=== PATIENT | male | born 1955 | race Caucasian/White ===

== ENCOUNTER 2024-04-25 19:13 | Inpatient (IN) | payer BC ==
[~2024-04-25] VITALS: Ht 182.9 cm; Wt 122.5 kg
[2024-04-25] MEDS: IV NS 0.9% 1,000 ML BAG IV ONE ×2 (19:58→21:13)
[2024-04-25 20:07] LABS: BASOPHILS % (AUTO) 0.5 % (0.0-2.0); EOSINOPHILS # (AUTO) 0.2 K/uL (0.0-0.7); EOSINOPHILS % (AUTO) 2.5 % (0.0-6.0); HEMATOCRIT 40 % (39-51); HEMOGLOBIN 12.9 g/dL (13.5-17.5); LYMPHOCYTES # (AUTO) 1.9 K/uL (0.8-4.8); LYMPHOCYTES % (AUTO) 27.5 % (20.0-44.0); MEAN CORPUSCULAR HEMOGLOBIN 26 PG (26.0-33.0); MEAN CORPUSCULAR HGB CONC 32 g/dl (31.0-36.0); MEAN CORPUSCULAR VOLUME 82 fL (80-96); NEUTROPHILS # (AUTO) 3.8 K/uL (1.8-8.9); NEUTROPHILS % (AUTO) 55.5 % (43.0-81.0); PLATELET COUNT (AUTO) 283 K/uL (150-450); RED BLOOD CELL COUNT(AUTO) 4.94 MIL/uL (4.5-6.0); RED CELL DISTRIBUTION WIDTH 14.6 % (11.5-15.0); WHITE BLOOD COUNT (AUTO) 6.8 K/uL (4.3-11.0)
[2024-04-25 20:29] LABS: CALCIUM, SERUM 9.2 mg/dL (8.5-10.1); CARBON DIOXIDE 25 mmol/L (21-32); CHLORIDE 104 mmol/L (98-107); CREATININE 2.8 mg/dL (0.6-1.3); POTASSIUM 3.9 mmol/L (3.5-5.1); SODIUM SERUM 138 mmol/L (136-145); UREA NITROGEN, BLOOD 23 mg/dL (7-18)
[2024-04-25 20:37] LABS: ALANINE AMINOTRANSFERASE 38 U/L (12-78); ALBUMIN 3.5 g/dL (3.4-5.0); ALKALINE PHOSPHATASE 111 U/L (46-116); ASPARTATE AMINOTRANSFERASE 16 U/L (15-37); BILIRUBIN,DIRECT 0.1 mg/dL (0.0-0.2); BILIRUBIN,TOTAL 0.3 mg/dL (0.2-1.0); GLUCOSE 401 mg/dL (74-106); LIPASE 79 U/L (16-77); TOTAL PROTEIN, SERUM 7.7 g/dL (6.4-8.2)
[2024-04-25] MEDS ORDERED: INSULIN REGULAR, HUMAN 100 UNIT/ML 10 ML VIAL ONE (21:08)
[2024-04-25] MEDS ORDERED: CEFTRIAXONE 1GM BAG (ER ONLY) 50 ML IV ONE (21:08)
[2024-04-25] MEDS ORDERED: AZITHROMYCIN 500 MG VIAL ONE (21:08)
[2024-04-25] MEDS: CEFTRIAXONE 1GM BAG (ER ONLY) 50 ML IV ONE (21:13)
[2024-04-25] MEDS: AZITHROMYCIN 500 MG in IV D5W 250 ML IV ONE (21:36)
[2024-04-25] MEDS: INSULIN REGULAR, HUMAN 100 UNIT/ML 10 ML VIAL SQ ONE (21:37)
[2024-04-25] MEDS ORDERED: ACETAMINOPHEN 325 MG TABLET PO PRN (22:30)
[2024-04-25] MEDS ORDERED: DEXTROSE 50%-WATER 50 ML DISP.SYRIN IV PRN (22:30)
[2024-04-25] MEDS ORDERED: MAG HYDROX/AL HYDROX/SIMETH 30 ML UDC PO PRN (22:30)
[2024-04-25] MEDS ORDERED: Z GUARD REMEDY 4 OZ OINT TP PRN (22:30)
[2024-04-25] MEDS ORDERED: MAGNESIUM HYDROXIDE 30 ML UDC PO PRN (22:30)
[2024-04-25] MEDS ORDERED: ONDANSETRON HCL/PF 4 MG/2 ML VIAL IVP PRN (22:30)
[2024-04-25] MEDS ORDERED: ZOLPIDEM TARTRATE 5 MG TABLET PO PRN (22:30)
[2024-04-25] MEDS ORDERED: *INSULIN REGULAR(HUMULIN R)HUM 100 UNIT/ML VIAL SQ PRN (22:30)
[2024-04-25] MEDS: IV 1/2NS 1000 ML 1,000 ML IV PRN (23:11)
[2024-04-26] VITALS: BP 160/93; TEMP 97.5; O2SAT 99
[2024-04-26 04:00] VITALS: BP 158/92; TEMP 98.2; O2SAT 98
[2024-04-26] MEDS: INSULIN REGULAR, HUMAN 100 UNIT/ML 3 ML VIAL SQ PRN ×2 (06:45→09:12)
[2024-04-26] MEDS: BLOOD SUGAR DIAGNOSTIC 1 EACH STRIP VI SCH ×2 (06:45→09:11)
[2024-04-26] MEDS: PANTOPRAZOLE 40 MG TABLET.DR PO SCH (07:43)
[2024-04-26 08:00] VITALS: BP 151/91; TEMP 98.2; O2SAT 98
[2024-04-26 08:04] LABS: CALCIUM, SERUM 8.6 mg/dL (8.5-10.1); MAGNESIUM 1.9 mg/dL (1.8-2.4); PHOSPHORUS 2.9 mg/dL (2.5-4.9); POTASSIUM 3.5 mmol/L (3.5-5.1)
[2024-04-26 08:09] LABS: BASOPHILS % (AUTO) 0.3 % (0.0-2.0); EOSINOPHILS # (AUTO) 0.2 K/uL (0.0-0.7); HEMATOCRIT 38 % (39-51); HEMOGLOBIN 12.1 g/dL (13.5-17.5); LYMPHOCYTES # (AUTO) 2.3 K/uL (0.8-4.8); LYMPHOCYTES % (AUTO) 30.1 % (20.0-44.0); MEAN CORPUSCULAR HEMOGLOBIN 26 PG (26.0-33.0); MEAN CORPUSCULAR HGB CONC 32 g/dl (31.0-36.0); MEAN CORPUSCULAR VOLUME 81 fL (80-96); MONOCYTES # (AUTO) 1.4 K/uL (0.1-1.30); NEUTROPHILS # (AUTO) 3.8 K/uL (1.8-8.9); NEUTROPHILS % (AUTO) 48.6 % (43.0-81.0); PLATELET COUNT (AUTO) 295 K/uL (150-450); RED BLOOD CELL COUNT(AUTO) 4.68 MIL/uL (4.5-6.0); RED CELL DISTRIBUTION WIDTH 14.1 % (11.5-15.0); WHITE BLOOD COUNT (AUTO) 7.7 K/uL (4.3-11.0)
[2024-04-26] MEDS ORDERED: DEXTROSE 50%-WATER 50 ML DISP.SYRIN IV PRN (09:00)
[2024-04-26] MEDS ORDERED: HEPARIN SODIUM, PORCINE 5000 UNITS/1 ML VIAL SQ SCH (09:00)
[2024-04-26] MEDS: AMLODIPINE BESYLATE 5 MG TABLET PO SCH (09:06)
[2024-04-26] MEDS ORDERED: VALS40TA12 PO (10:54)
[2024-04-26] MEDS ORDERED: PREG-57 PO (10:54)
[2024-04-26] MEDS ORDERED: ATOR40TA PO (10:54)
[2024-04-26] MEDS ORDERED: TOPI25TA49 PO (10:54)
[2024-04-26] MEDS ORDERED: INSU100I4 SQ (10:54)
[2024-04-26] MEDS ORDERED: INSU100V7 SQ (10:54)
[2024-04-26] MEDS ORDERED: AMIT100T2 PO (10:54)
[2024-04-26] MEDS ORDERED: APIX5TAB PO (10:54)
[2024-04-26] MEDS ORDERED: TORS20TA3 PO (10:54)
[2024-04-26] MEDS ORDERED: TAMS-12 PO (10:54)
[2024-04-26] MEDS ORDERED: AMLO-213 PO (10:54)
[2024-04-26] MEDS ORDERED: PANT20TA17 PO (10:54)
[2024-04-26 12:00] VITALS: BP 153/82; TEMP 98.2; O2SAT 98
[2024-04-26 13:11] LABS: EOSINOPHILS % (MANUAL) 2 % (0-4); LYMPHOCYTES % (MANUAL) 32 % (16-48); MONOCYTES % (MANUAL) 14 % (0-11.0); NEUTROPHILS % (MANUAL) 52 (42-76); PLATELET ESTIMATE ADEQUATE
[2024-04-26 16:00] VITALS: BP 154/87; TEMP 98.4; O2SAT 96
[2024-04-26 20:00] VITALS: BP 152/81; TEMP 98.2; O2SAT 98
[2024-04-26] MEDS: CEFTRIAXONE 1 G in IV D5W 50 ML IV SCH (20:50)
[2024-04-26] MEDS: AZITHROMYCIN 500 MG in IV D5W 250 ML IV SCH (22:14)
[2024-04-26] MEDS: *INSULIN REGULAR(HUMULIN R)HUM 100 UNIT/ML VIAL SQ PRN (22:24)
[2024-04-27] VITALS: BP 159/95; TEMP 98.1; O2SAT 99
[2024-04-27] MEDS: BUTALB/APAP/CAFFEINE 1 EACH TABLET PO PRN (00:04)
[2024-04-27 04:00] VITALS: BP 158/89; TEMP 97.2; O2SAT 97
[2024-04-27 08:00] VITALS: BP 150/81; TEMP 98.2; O2SAT 98
[2024-04-27 08:13] LABS: BASOPHILS % (AUTO) 0.5 % (0.0-2.0); EOSINOPHILS # (AUTO) 0.2 K/uL (0.0-0.7); EOSINOPHILS % (AUTO) 2.2 % (0.0-6.0); HEMATOCRIT 39 % (39-51); HEMOGLOBIN 12.8 g/dL (13.5-17.5); LYMPHOCYTES # (AUTO) 1.5 K/uL (0.8-4.8); LYMPHOCYTES % (AUTO) 20.5 % (20.0-44.0); MEAN CORPUSCULAR HEMOGLOBIN 27 PG (26.0-33.0); MEAN CORPUSCULAR HGB CONC 33 g/dl (31.0-36.0); MEAN CORPUSCULAR VOLUME 81 fL (80-96); MONOCYTES # (AUTO) 0.9 K/uL (0.1-1.30); MONOCYTES % (AUTO) 12.1 % (2.0-12.0); NEUTROPHILS # (AUTO) 4.7 K/uL (1.8-8.9); NEUTROPHILS % (AUTO) 64.7 % (43.0-81.0); PLATELET COUNT (AUTO) 311 K/uL (150-450); RED BLOOD CELL COUNT(AUTO) 4.78 MIL/uL (4.5-6.0); RED CELL DISTRIBUTION WIDTH 14.4 % (11.5-15.0); WHITE BLOOD COUNT (AUTO) 7.3 K/uL (4.3-11.0)
[2024-04-27 08:30] LABS: BILIRUBIN,TOTAL 0.2 mg/dL (0.2-1.0); CALCIUM, SERUM 9.2 mg/dL (8.5-10.1); CREATININE 1.9 mg/dL (0.6-1.3); MAGNESIUM 1.9 mg/dL (1.8-2.4); PHOSPHORUS 2.5 mg/dL (2.5-4.9); POTASSIUM 3.5 mmol/L (3.5-5.1); TOTAL PROTEIN, SERUM 6.9 g/dL (6.4-8.2)
[2024-04-27] MEDS: AMITRIPTYLINE HCL 25 MG TABLET PO SCH (08:58)
[2024-04-27] MEDS: PREGABALIN 25 MG CAPSULE PO SCH (08:59)
[2024-04-27] MEDS: TAMSULOSIN 0.4 MG CAP.SR.24H PO SCH (08:59)
[2024-04-27] MEDS: ATORVASTATIN 40 MG TABLET PO SCH (08:59)
[2024-04-27] MEDS ORDERED: BUTALB/APAP/CAFFEINE 1 EACH TABLET PO SCH (09:00)
[2024-04-27] MEDS: APIXABAN 5 MG TABLET PO SCH (09:00)
[2024-04-27] MEDS: AMLODIPINE BESYLATE 10 MG TABLET PO SCH (09:00)
[2024-04-27] MEDS: PANTOPRAZOLE 40 MG TABLET.DR PO SCH (09:08)
[2024-04-27 12:00] VITALS: BP 142/81; TEMP 98; O2SAT 99
[2024-04-27 14:32] LABS: APPEARANCE,URINE CLEAR (CLEAR); BILIRUBIN,URINE NEGATIVE (NEGATIVE); BLOOD, URINE 1+ Ery/uL (NEGATIVE); COLOR,URINE YELLOW (YELLOW); KETONES,URINE NEGATIVE (NEGATIVE); LEUKOCYTE ESTERASE ,URINE NEGATIVE (NEGATIVE); NITRITE, URINE NEGATIVE (NEGATIVE); PROTEIN,URINE 1+ mg/dl (NEGATIVE); UGLUCOSE 1+ mg/dL (NEGATIVE); UROBILINOGEN,URINE 0.2 EU/dL (0.2)
[2024-04-27 14:38] LABS: CREATININE, URINE 68.4 MG/DL (30.0-125.0); URINE TOTAL PROTEIN 61.8 mg/dL (0-11.9)
[2024-04-27 15:09] LABS: ADD URINE CULTURE NO; BACTERIA,URINE Rare /HPF (None Seen); SQUAMOUS EPITHELIAL CELL,UR 0-2 /HPF (None Seen); WBC,URINE 0-2 /HPF (0-3)
[2024-04-27 15:31] LABS: EOSINOPHIL,URINE None Seen
[2024-04-27 16:00] VITALS: BP 150/75; TEMP 98; O2SAT 99
[2024-04-27] MEDS: TOPIRAMATE 25 MG TABLET PO SCH (18:18)
[2024-04-27 20:00] VITALS: BP 157/86; TEMP 97.9; O2SAT 99
[2024-04-28] VITALS: BP 156/87; TEMP 97.7; O2SAT 96
[2024-04-28] MEDS: INSULIN GLARGINE, 100 UNIT/ML CARTRIDGE SQ SCH (00:45)
[2024-04-28 04:00] VITALS: BP 152/88; TEMP 97.7; O2SAT 95
[2024-04-28 08:00] VITALS: BP 150/91; TEMP 97.9; O2SAT 96
[2024-04-28 08:17] VITALS: BP 150/91
[2024-04-28] MEDS: LACTULOSE 10 G/15 ML UDC (PYXIS) PO STA (10:51)
[2024-04-28] MEDS: DOCUSATE SODIUM 100 MG CAPSULE PO SCH (11:07)
[2024-04-28] MEDS: POLYETHYLENE GLYCOL 3350 17 GM POWD.PACK PO SCH (11:07)
[2024-04-28 12:12] LABS: PTH, INTACT 31 pg/mL (15-65)
[2024-04-29 08:10] LABS: *SPE A/G RATIO 0.9 (0.7-1.7); *SPE ALPHA-1-GLOBULIN 0.2 g/dL (0.0-0.4); *SPE ALPHA-2-GLOBULIN 0.7 g/dL (0.4-1.0); *SPE BETA GLOBULIN 1.2 g/dL (0.7-1.3); *SPE GLOBULIN, TOTAL 3.5 g/dL (2.2-3.9); *SPE M-SPIKE Not Observed g/dL (Not Observed); *SPE PROTEIN TOTAL 6.5 g/dL (6.0-8.5); *SPEGAMMA GLOBULIN 1.4 g/dL (0.4-1.8)
== END 2024-04-28 15:20 | disposition home or self-care (01) | DRG 637 ==
LOC: ER 19:20 → TELE1 21:19 → MEDSG1 04-27 09:48
PROVIDERS: ADMIT Student in an Organized Health Care Education/Training Program; ATTEND Internal Medicine
DX: E11.65 Type 2 diabetes mellitus with hyperglycemia (principal); J96.00 Acute respiratory failure, unspecified whether with hypoxia or hypercapnia; N17.0 Acute kidney failure with tubular necrosis; J44.1 Chronic obstructive pulmonary disease with (acute) exacerbation; I12.9 Hypertensive chronic kidney disease with stage 1 through stage 4 chronic kidney disease, or unspecified chronic kidney disease; N18.9 Chronic kidney disease, unspecified; E11.22 Type 2 diabetes mellitus with diabetic chronic kidney disease; D64.9 Anemia, unspecified; E66.9 Obesity, unspecified; E86.9 Volume depletion, unspecified; Z79.01 Long term (current) use of anticoagulants; Z79.4 Long term (current) use of insulin; Z86.711 Personal history of pulmonary embolism; Z88.2 Allergy status to sulfonamides; Z20.822 Contact with and (suspected) exposure to COVID-19; G47.33 Obstructive sleep apnea (adult) (pediatric); Z68.36 Body mass index [BMI] 36.0-36.9, adult; R91.1 Solitary pulmonary nodule; E83.9 Disorder of mineral metabolism, unspecified
CPT/HCPCS: 36415; 70450-TC; 71045-TC; 71250-TC; 76770-TC; 80048-TC; 80053-TC; 80076-TC; 81001; 82010-TC; 82550-TC; 82570-TC; 82803-TC; 82962-TC; 83605-TC; 83690-TC; 83735-TC; 83970; 84100-TC; 84155; 84165; 84300-TC; 84484-TC; 85025-TC; 87040-TC; 87086-TC; 93307-TC; 93970-TC; A4223; G0378; J0456; J0696; J1815; J3490; J7030; J7040; J7050; J7060